=== PATIENT | male | born 1935 | race Caucasian/White ===

== ENCOUNTER → 2016-11-17 | Outpatient (CLI) | payer MEDICARE ==
[2016-11-17 07:56] LABS: AUTOMATED NEUTROPHIL # 3.2 TH/MM3 (1.8-7.7); BASOPHIL % 0.7 % (0.0-2.0); EOSINOPHIL # 0.4 TH/MM3 (0-0.4); EOSINOPHIL % 6.8 % (0.0-4.0); HEMO FLAGS DIFF FINAL; LYMPHOCYTE # 1.8 TH/MM3 (1.0-4.8); MEAN CELL VOLUME 94.3 FL (80.0-100.0); MEAN CORPUSCULAR HEMOGLOBIN 32.2 PG (27.0-34.0); MEAN CORPUSCULAR HGB CONC 34.2 % (32.0-36.0); MONO % 14.9 % (0.0-8.0); NEUT % 49.6 % (16.0-70.0); PLATELET COUNT 266 TH/MM3 (150-450); RED BLOOD COUNT 4.67 MIL/MM3 (4.50-5.90); RED CELL DISTRIBUTION WIDTH 13.1 % (11.6-17.2); WHITE BLOOD COUNT 6.4 TH/MM3 (4.0-11.0)
[2016-11-17 08:27] LABS: ALKALINE PHOSPHATASE 62 U/L (45-117); TOTAL BILIRUBIN ADULT 0.6 MG/DL (0.2-1.0)
[2016-11-17 08:31] LABS: ALT (GPT) 54 U/L (12-78); ANION GAP 10 MEQ/L (5-15); AST (GOT) 42 U/L (15-37); BICARBONATE 28.1 MEQ/L (21.0-32.0); BLOOD UREA NITROGEN 23 MG/DL (7-18); CHLORIDE 100 MEQ/L (98-107); GLOMERULAR FILTRATION RATE 52 ML/MIN (>89); GLUCOSE,FASTING 163 MG/DL (74-99); SODIUM (NA) 138 MEQ/L (136-145)
[2016-11-17 08:32] LABS: POTASSIUM 4.3 MEQ/L (3.5-5.1)
[2016-11-17 09:17] LABS: HEMOGLOBIN A1a 1.1 %; HEMOGLOBIN A1b 2.5 %; HEMOGLOBIN Ao 80.7 %; HEMOGLOBIN LA1C 2.4 %; HEMOGLOBIN P3 4.4 %
== END ==
LOC: CLAB 07:25
PROVIDERS: ATTEND Family Medicine
DX: E11.621 Type 2 diabetes mellitus with foot ulcer (principal); E03.9 Hypothyroidism, unspecified
CPT/HCPCS: 36415; 80053; 83036; 84443; 85025

== ENCOUNTER → 2017-02-06 | Outpatient (CLI) | payer MEDICARE ==
[2017-02-06 08:07] LABS: AUTOMATED NEUTROPHIL # 3.3 TH/MM3 (1.8-7.7); BASOPHIL % 0.7 % (0.0-2.0); EOSINOPHIL # 0.5 TH/MM3 (0-0.4); EOSINOPHIL % 6.9 % (0.0-4.0); HEMATOCRIT 40.7 % (39.0-51.0); HEMO FLAGS DIFF FINAL; LYMPH % 26.7 % (9.0-44.0); LYMPHOCYTE # 1.8 TH/MM3 (1.0-4.8); MEAN CORPUSCULAR HEMOGLOBIN 31.8 PG (27.0-34.0); MEAN CORPUSCULAR HGB CONC 33.9 % (32.0-36.0); MONO % 15.9 % (0.0-8.0); NEUT % 49.8 % (16.0-70.0); PLATELET COUNT 246 TH/MM3 (150-450); RED BLOOD COUNT 4.33 MIL/MM3 (4.50-5.90); RED CELL DISTRIBUTION WIDTH 13.1 % (11.6-17.2); WHITE BLOOD COUNT 6.7 TH/MM3 (4.0-11.0)
[2017-02-06 08:08] LABS: MICRO ALBUMIN RANDOM URINE RAW 40.1 MG/L (0.0-30.0)
[2017-02-06 08:09] LABS: BICARBONATE 27.9 MEQ/L (21.0-32.0); MAGNESIUM 1.6 MG/DL (1.5-2.5); POTASSIUM 4.2 MEQ/L (3.5-5.1)
[2017-02-06 08:35] LABS: FREE T3 2.18 PG/ML (2.18-3.98); FREE T4 0.91 NG/DL (0.76-1.46); HDL CHOLESTEROL 50.1 MG/DL (40.0-60.0); INDIRECT BILIRUBIN 0.4 MG/DL (0.0-0.8); TOTAL BILIRUBIN ADULT 0.5 MG/DL (0.2-1.0); URIC ACID 5.8 MG/DL (2.6-7.2)
[2017-02-11 03:54] LABS: THYROGLOB ABS LESS THAN 1 IU/mL (< OR = 1)
== END ==
LOC: CLAB 07:07
PROVIDERS: ATTEND Internal Medicine Endocrinology, Diabetes & Metabolism
DX: E11.65 Type 2 diabetes mellitus with hyperglycemia (principal); E11.40 Type 2 diabetes mellitus with diabetic neuropathy, unspecified; E03.9 Hypothyroidism, unspecified; I10 Essential (primary) hypertension
CPT/HCPCS: 36415; 80048; 80061; 80076; 82043; 82306; 82607; 82747; 83735; 83970; 84100; 84439; 84443; 84481; 84550; 85025; 86376; 86800

== ENCOUNTER → 2017-03-20 | Outpatient (CLI) | payer MEDICARE ==
[2017-03-20 08:17] LABS: AUTOMATED NEUTROPHIL # 3.6 TH/MM3 (1.8-7.7); BASOPHIL # 0.1 TH/MM3 (0-0.2); BASOPHIL % 1.1 % (0.0-2.0); EOSINOPHIL # 0.4 TH/MM3 (0-0.4); HEMATOCRIT 41.9 % (39.0-51.0); HEMO FLAGS DIFF FINAL; LYMPH % 25.3 % (9.0-44.0); LYMPHOCYTE # 1.7 TH/MM3 (1.0-4.8); MEAN CELL VOLUME 94.1 FL (80.0-100.0); MEAN CORPUSCULAR HEMOGLOBIN 32.2 PG (27.0-34.0); MEAN CORPUSCULAR HGB CONC 34.2 % (32.0-36.0); MONO % 14.8 % (0.0-8.0); NEUT % 52.8 % (16.0-70.0); PLATELET COUNT 271 TH/MM3 (150-450); RED BLOOD COUNT 4.45 MIL/MM3 (4.50-5.90); RED CELL DISTRIBUTION WIDTH 13.3 % (11.6-17.2); WHITE BLOOD COUNT 6.7 TH/MM3 (4.0-11.0)
[2017-03-20 08:35] LABS: MICRO ALBUMIN RANDOM URINE RAW 53.1 MG/L (0.0-30.0)
[2017-03-20 08:39] LABS: GLUCOSE,FASTING 215 MG/DL (74-99)
[2017-03-20 08:48] LABS: ANION GAP 7 MEQ/L (5-15); AST (GOT) 32 U/L (15-37); BLOOD UREA NITROGEN 23 MG/DL (7-18); CHLORIDE 100 MEQ/L (98-107); GLOMERULAR FILTRATION RATE 55 ML/MIN (>89); POTASSIUM 4.4 MEQ/L (3.5-5.1); SODIUM (NA) 136 MEQ/L (136-145)
[2017-03-20 08:52] LABS: ALKALINE PHOSPHATASE 66 U/L (45-117); ALT (GPT) 37 U/L (12-78); TOTAL BILIRUBIN ADULT 0.6 MG/DL (0.2-1.0)
[2017-03-20 15:27] LABS: HEMOGLOBIN A1a 1.1 %; HEMOGLOBIN A1b 2.4 %; HEMOGLOBIN Ao 80.5 %; HEMOGLOBIN LA1C 2.8 %; HEMOGLOBIN P3 4.7 %
== END ==
LOC: CLAB 07:40
PROVIDERS: ATTEND Family Medicine
DX: E11.621 Type 2 diabetes mellitus with foot ulcer (principal); E11.42 Type 2 diabetes mellitus with diabetic polyneuropathy; E03.9 Hypothyroidism, unspecified
CPT/HCPCS: 36415; 80053; 82043; 83036; 84443; 85025

== ENCOUNTER → 2017-05-14 | Outpatient (CLI) | payer MEDICARE ==
[2017-05-14 08:17] LABS: ANION GAP 7 MEQ/L (5-15); BICARBONATE 29.3 MEQ/L (21.0-32.0); BLOOD UREA NITROGEN 25 MG/DL (7-18); CHLORIDE 101 MEQ/L (98-107); GLOMERULAR FILTRATION RATE 51 ML/MIN (>89); GLUCOSE,FASTING 188 MG/DL (74-99); POTASSIUM 4.5 MEQ/L (3.5-5.1); SODIUM (NA) 137 MEQ/L (136-145)
[2017-05-14 08:27] LABS: FREE T4 1.03 NG/DL (0.76-1.46)
[2017-05-14 16:47] LABS: HEMOGLOBIN A1a 1.1 %; HEMOGLOBIN A1b 2.5 %; HEMOGLOBIN Ao 80.5 %; HEMOGLOBIN LA1C 2.7 %; HEMOGLOBIN P3 4.6 %
== END ==
LOC: CLAB 07:31
PROVIDERS: ATTEND Internal Medicine Endocrinology, Diabetes & Metabolism
DX: E03.9 Hypothyroidism, unspecified (principal); E11.65 Type 2 diabetes mellitus with hyperglycemia; E11.40 Type 2 diabetes mellitus with diabetic neuropathy, unspecified; I10 Essential (primary) hypertension
CPT/HCPCS: 36415; 80048; 83036; 84439; 84443

== ENCOUNTER → 2017-06-18 | Outpatient (CLI) | payer MEDICARE ==
[2017-06-18 08:19] LABS: MICRO ALBUMIN RANDOM URINE RAW 18.9 MG/L (0.0-30.0)
[2017-06-18 08:31] LABS: BICARBONATE 27.9 MEQ/L (21.0-32.0); MAGNESIUM 1.7 MG/DL (1.5-2.5); POTASSIUM 4.1 MEQ/L (3.5-5.1)
[2017-06-18 08:33] LABS: URIC ACID 7.7 MG/DL (2.6-7.2)
== END ==
LOC: CLAB 07:26
PROVIDERS: ATTEND Internal Medicine Endocrinology, Diabetes & Metabolism
DX: E78.2 Mixed hyperlipidemia (principal); E11.65 Type 2 diabetes mellitus with hyperglycemia
CPT/HCPCS: 36415; 80048; 82043; 82150; 83525; 83690; 83735; 84100; 84206; 84550; 84681; 86341

== ENCOUNTER → 2017-09-22 | Outpatient (CLI) | payer MEDICARE ==
[2017-09-22 08:31] LABS: ALBUMIN 3.6 GM/DL (3.4-5.0); ALKALINE PHOSPHATASE 78 U/L (45-117); ALT (GPT) 31 U/L (12-78); AST (GOT) 25 U/L (15-37); BICARBONATE 27.6 MEQ/L (21.0-32.0); BLOOD UREA NITROGEN 31 MG/DL (7-18); CALCIUM 10.8 MG/DL (8.5-10.1); CHLORIDE 100 MEQ/L (98-107); CREATININE 1.39 MG/DL (0.60-1.30); GLOMERULAR FILTRATION RATE 49 ML/MIN (>89); GLUCOSE,FASTING 213 MG/DL (74-99); SODIUM (NA) 136 MEQ/L (136-145); TOTAL BILIRUBIN ADULT 0.6 MG/DL (0.2-1.0); TOTAL PROTEIN 7.9 GM/DL (6.4-8.2)
[2017-09-22 16:01] LABS: HEMOGLOBIN A1C 8.2 % (4.3-6.0)
== END ==
LOC: CLAB 07:36
DX: E11.65 Type 2 diabetes mellitus with hyperglycemia (principal)
CPT/HCPCS: 36415; 80053; 82043; 83036

== ENCOUNTER → 2017-12-23 | Outpatient (CLI) | payer MEDICARE ==
[2017-12-23 08:48] LABS: ALBUMIN 3.6 GM/DL (3.4-5.0); ALT (GPT) 35 U/L (12-78); AST (GOT) 25 U/L (15-37); BLOOD UREA NITROGEN 27 MG/DL (7-18); CALCIUM 10.6 MG/DL (8.5-10.1); CHLORIDE 100 MEQ/L (98-107); CREATININE 1.43 MG/DL (0.60-1.30); GLOMERULAR FILTRATION RATE 48 ML/MIN (>89); GLUCOSE,FASTING 213 MG/DL (74-99); SODIUM (NA) 137 MEQ/L (136-145)
[2017-12-23 08:50] LABS: ALKALINE PHOSPHATASE 70 U/L (45-117); TOTAL BILIRUBIN ADULT 0.6 MG/DL (0.2-1.0)
[2017-12-23 16:46] LABS: HEMOGLOBIN A1C 9.2 % (4.3-6.0)
== END ==
LOC: CLAB 07:57
DX: E11.65 Type 2 diabetes mellitus with hyperglycemia (principal)
CPT/HCPCS: 36415; 80053; 83036